=== PATIENT | female | born 1995 | race Caucasian/White ===

== ENCOUNTER → 2020-05-31 | Outpatient (CLI) | payer OTHER ==
--- NOTE | 2020-05-31 17:41 | RAD ---
Examination: Limited left breast ultrasound. INDICATION: 25-year-old woman with a tender lump in the left breast on self exam. COMPARISON: None. TECHNIQUE: Grayscale and color Doppler imaging of the patient's left breast in the area of palpable concern as reported on self exam was performed. FINDINGS: The area of patient's reported concern is at the 3:00 position 3 cm from the nipple and this reveals a ridge of dense fibrocystic tissue on ultrasound with no suspicious sonographic findings. Targeted ultrasound of the left axilla subareolar breast shows a physiologically enlarged 2.9 cm long left axillary lymph node with no abnormal cortical thickening or hilar fat effacement. IMPRESSION: Negative targeted left breast ultrasound in the area of patient reported concern. Recommend clinical management which should include biopsy if there are any clinically suspicious findings. In the absence of any clinically suspicious findings, age-appropriate routine mammographic screening is recommended in addition to clinical management. BI-RADS Category 1 Negative Electronically signed by: Juanito Ji MD (05/31/2020 5:37 PM) [id number]
== END | disposition home or self-care (01) ==
LOC: EEVIPCON 13:45 → US 13:45
PROVIDERS: ATTEND Preventive Medicine Occupational Medicine
DX: R92.2 Inconclusive mammogram (principal)
CPT/HCPCS: 76641